=== PATIENT | male | born 1950 ===

== ENCOUNTER 2021-01-08 06:30 | Day surgery (SDC) | payer OTHER | END 2021-01-08 12:30 | disposition home or self-care (01) | LOC: AMB-ENDOS 06:30 | PROVIDERS: ATTEND Surgery | DX: D12.3 Benign neoplasm of transverse colon (principal); D12.4 Benign neoplasm of descending colon; D12.5 Benign neoplasm of sigmoid colon; K64.8 Other hemorrhoids; Z20.822 Contact with and (suspected) exposure to COVID-19 ==